=== PATIENT | female | born 1990 | race Caucasian/White ===

== ENCOUNTER 2020-02-24 11:55 | Emergency (ER) | payer OTHER ==
[~2020-02-24] VITALS: Ht 162.6 cm; Wt 72.6 kg
[2020-02-24] MEDS ORDERED: FLEXERIL PO (12:45)
[2020-02-24] MEDS ORDERED: PREDNISONE 5 MG5 M1 PO (12:45)
[2020-02-24 14:17] VITALS: BP 107/78
== END 2020-02-24 14:21 | disposition home or self-care (01) ==
LOC: ER 11:55
DX: M54.31 Sciatica, right side (principal); F17.210 Nicotine dependence, cigarettes, uncomplicated